=== PATIENT | male | born 1990 | race Caucasian/White ===

== ENCOUNTER → 2024-09-29 | Outpatient (CLI) | payer OTHER ==
[~2024-09-29] MED LIST: ACULAR 3 ML3 M1 OP; CLARITIN10 MG PO; CLINDAMYCIN150 MG PO; NAPROSYN500 MG PO; PERCOCET 325 MG1 TA2 PO; TOBREX OPHTH S2.5 ML OPH; ZITHROMAX Z PA250 MG PO
== END | disposition home or self-care (01) ==
LOC: LAB 10:13
DX: Z01.812 Encounter for preprocedural laboratory examination (principal)

== ENCOUNTER → 2024-10-21 | Outpatient (CLI) | payer OTHER | LOC: LAB 10:10 | DX: Z01.812 Encounter for preprocedural laboratory examination (principal) ==